=== PATIENT | male | born 1995 | race Caucasian/White ===

== ENCOUNTER 2016-10-06 16:42 | Emergency (ER) | payer SELFPAY ==
[~2016-10-06] VITALS: Ht 182.9 cm; Wt 91.4 kg
[2016-10-06 16:44] VITALS: BP 123/83; PULSE 140; RESP 16; TEMP 97.9; O2SAT 93
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
[2016-10-06] MEDS ORDERED: DIVA250ER PO ×2 (17:09)
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
== END 2016-10-06 18:00 | disposition home or self-care (01) ==
LOC: PHEFT 16:42
DX: S62.114A Nondisplaced fracture of triquetrum [cuneiform] bone, right wrist, initial encounter for closed fracture (principal); S80.211A Abrasion, right knee, initial encounter; S50.311A Abrasion of right elbow, initial encounter; S60.512A Abrasion of left hand, initial encounter; V18.0XXA Pedal cycle driver injured in noncollision transport accident in nontraffic accident, initial encounter; Y93.55 Activity, bike riding
CPT/HCPCS: 29125; 73110